=== PATIENT | female | born 1975 | race Caucasian/White ===

== ENCOUNTER 2019-08-11 19:39 | Inpatient (IN) | payer OTHER ==
[~2019-08-11] VITALS: Ht 158.8 cm; Wt 78.0 kg
[2019-08-11] MEDS ORDERED: ROPI0.5T2 PO (20:03)
[2019-08-11] MEDS ORDERED: VALE530C PO (20:03)
[2019-08-11] MEDS ORDERED: GABA600T13 PO (20:03)
[2019-08-11 20:10] LABS: BASOPHILS % (AUTO) 0.4 % (0-1); EOSINOPHILS # (AUTO) 0.1 X10'3 (0-0.9); EOSINOPHILS % (AUTO) 1.2 % (0-6); HEMOGLOBIN 12.3 g/dl (12.0-16.0); LYMPHOCYTES # (AUTO) 1.5 X10'3 (1.1-4.8); LYMPHOCYTES % (AUTO) 31.3 % (21-51); MEAN CORPUSCULAR VOLUME 91.3 FL (78-98); MONOCYTES # (AUTO) 0.3 X10'3 (0-0.9); NEUTROPHILS # (AUTO) 2.8 X10'3 (1.8-7.7); NEUTROPHILS % (AUTO) 60.1 % (42-75); PLATELET COUNT 203 X10'3 (140-440); RED BLOOD COUNT 3.83 X10'6 (4.20-5.60); RED CELL DISTRIBUTION WIDTH 12.9 % (11.5-14.5); WHITE BLOOD COUNT 4.7 X10'3 (4.5-11.0)
[2019-08-11 20:24] LABS: ALANINE AMINOTRANSFERASE 39 U/L (12-78); ALBUMIN 3.4 G/DL (3.4-5.0); ALBUMIN/GLOBULIN RATIO 1.2 (1.1-1.5); ALKALINE PHOSPHATASE 56 IU/L (46-116); ANION GAP 8 (8-16); ASPARTATE AMINO TRANSFERASE 33 U/L (10-37); BILIRUBIN,TOTAL 0.2 MG/DL (0.1-1.0); BLOOD UREA NITROGEN 7 MG/DL (7-18); BUN/CREATININE RATIO 7.4 (6.6-38.0); CALCIUM 8.2 MG/DL (8.5-10.1); CHLORIDE 107 MMOL/L (99-107); CREATININE 0.94 MG/DL (0.40-0.90); GLUCOSE 87 MG/DL (70-104); POTASSIUM 4.2 MMOL/L (3.5-5.1); SODIUM 142 MMOL/L (135-145); TOTAL CARBON DIOXIDE 27.3 MMOL/L (24-32); TOTAL PROTEIN 6.3 G/DL (6.4-8.2); eGFR 65 ML/MIN
[2019-08-11] MEDS ORDERED: mag hydrox/Alum hydrox/simeth 30ml oral suspension PO PRN (22:00)
[2019-08-11] MEDS ORDERED: ondansetron/PF 4mg/2ml inj IV PRN (22:00)
[2019-08-11] MEDS ORDERED: acetaminophen 325mg tablet PO PRN (22:00)
[2019-08-11] MEDS ORDERED: morphine 2 MG/ML inj. syringe IV PRN ×2 (22:00)
[2019-08-11] MEDS ORDERED: magnesium hydroxide 30ml (MOM) UD suspension PO PRN (22:00)
--- NOTE | 2019-08-11 22:00 | NUR ---
Patient in room MED 315. I have received report from KATELYN GUTIERREZ IN ER and had the opportunity to ask questions and assume patient care.
[2019-08-11] MEDS: normal saline 1000ml 1,000 ML IV SCH (22:25)
[2019-08-11 23:35] VITALS: BP 145/86
[2019-08-12] VITALS (18 sets, daily range): BP systolic 100–176; BP diastolic 59–89
[2019-08-12 02:39] LABS: BASOPHILS % (AUTO) 0.5 % (0-1); EOSINOPHILS # (AUTO) 0.1 X10'3 (0-0.9); EOSINOPHILS % (AUTO) 1.7 % (0-6); HEMATOCRIT 37.1 % (35.0-45.0); HEMOGLOBIN 12.7 g/dl (12.0-16.0); LYMPHOCYTES # (AUTO) 1.3 X10'3 (1.1-4.8); LYMPHOCYTES % (AUTO) 29.2 % (21-51); MEAN CORPUSCULAR HEMOGLOBIN 31.5 PG (27.0-31.0); MEAN CORPUSCULAR HGB CONC 34.1 g/dL (33.0-36.5); MEAN CORPUSCULAR VOLUME 92.3 FL (78-98); MONOCYTES # (AUTO) 0.3 X10'3 (0-0.9); MONOCYTES % (AUTO) 6.6 % (2-12); NEUTROPHILS # (AUTO) 2.7 X10'3 (1.8-7.7); PLATELET COUNT 195 X10'3 (140-440); RED BLOOD COUNT 4.03 X10'6 (4.20-5.60); WHITE BLOOD COUNT 4.4 X10'3 (4.5-11.0)
[2019-08-12 02:58] LABS: ALBUMIN 3.3 G/DL (3.4-5.0); ANION GAP 4 (8-16); BLOOD UREA NITROGEN 6 MG/DL (7-18); BUN/CREATININE RATIO 6.5 (6.6-38.0); CALCIUM 8.5 MG/DL (8.5-10.1); CHLORIDE 108 MMOL/L (99-107); CREATININE 0.92 MG/DL (0.40-0.90); GLUCOSE 84 MG/DL (70-104); SODIUM 141 MMOL/L (135-145); TOTAL CARBON DIOXIDE 28.8 MMOL/L (24-32); eGFR 66 ML/MIN
--- NOTE | 2019-08-12 06:00 | NUR ---
I have received report from An GUTIERREZ and had the opportunity to ask questions and assume patient care.
--- NOTE | 2019-08-12 06:28 | NUR ---
Problems reprioritized. Patient report given, questions answered & plan of care reviewed with ALBERT GUTIERREZ.
[2019-08-12] MEDS: normal saline 1000ml 1,000 ML IV SCH ×2 (07:57→17:57)
[2019-08-12] MEDS ORDERED: enoxaparin 100mg/ml syringe SUBCUT SCH (08:00)
[2019-08-12] MEDS ORDERED: aminophylline 250mg/10ml inj. IV PRN (08:25)
[2019-08-12] MEDS ORDERED: metoprolol tartrate 1mg/ml inj IV PRN (08:25)
[2019-08-12] MEDS ORDERED: nitroGLYCERIN 0.4mg SUBLingual tab SL PRN (08:25)
[2019-08-12] MEDS ORDERED: regadenoson 0.4mg/5ml syringe IV PRN (08:25)
[2019-08-12] MEDS: atorvastatin 20mg tablet PO SCH (08:49)
[2019-08-12] MEDS: enoxaparin 30mg/0.3ml syringe SUBCUT SCH ×2 (08:49→20:00)
[2019-08-12] MEDS: aspirin 81mg tablet.DR PO SCH (08:49)
[2019-08-12] MEDS: gabapentin 300mg capsule PO SCH ×3 (08:49→22:04)
[2019-08-12] MEDS: enoxaparin 40mg/0.4ml syringe SQ SCH ×2 (08:49→20:00)
--- NOTE | 2019-08-12 12:56 | NUR ---
PAGER ID: [phone] MESSAGE: [id number]. Pt. is done with TeamLINKS and Felipa and is back in room. ACCE [id number]
[2019-08-12] MEDS ORDERED: LIDOcaine/PRILOcaine 5gm cream TP ONE (17:35)
[2019-08-12 18:21] LABS: CHOL/HDL RATIO 2.7 (0.00-4.99); CHOLESTEROL 205 MG/DL (0-200); HDL CHOLESTEROL 77 MG/DL (35-60); LDL CHOLESTEROL 107 MG/DL (50-100); TRIGLYCERIDES 102 MG/DL (20-135)
--- NOTE | 2019-08-12 18:39 | NUR ---
Problems reprioritized. Patient report given, questions answered & plan of care reviewed with Hannah GUTIERREZ.
--- NOTE | 2019-08-12 18:45 | NUR ---
Patient in room MED 315. I have received report from Yasmany GUTIERREZ and had the opportunity to ask questions and assume patient care. bedside report completed. no distress noted.
[2019-08-12] MEDS ORDERED: midazolam 2 mg/2 ml injection ONE (19:14)
[2019-08-12] MEDS ORDERED: fentaNYL/PF 50MCG/1 ML 2ML syringe ONE (19:14)
[2019-08-12] MEDS ORDERED: LIDOcaine 1% (10mg/ml)w/preservative injection 20ml MDV ONE (19:14)
[2019-08-12] MEDS ORDERED: verapamil 2.5 mg/ml inj IV ONE (19:14)
[2019-08-12] MEDS ORDERED: heparin 1,000unit/ml 10ml vial 10 ML ONE (19:15)
[2019-08-12] MEDS ORDERED: nitroGLYCERIN-Tridil 50MG/D5W 250 ML IV ONE (19:15)
[2019-08-12] MEDS ORDERED: iohexol 350 MG/ML 50ML vial IV ONE (19:15)
[2019-08-12] MEDS ORDERED: iohexol 350MG/ML 100ml bottle IV ONE (19:15)
[2019-08-12] MEDS: metoprolol tartrate 12.5mg (1/2 tablet) PO SCH (20:00)
[2019-08-12] MEDS ORDERED: amiodarone 50MG/ML inj IV ONE (20:09)
[2019-08-12] MEDS ORDERED: VALERIAN ROOT PO SCH (21:00)
[2019-08-12] MEDS ORDERED: ROPINIRole 0.25mg tablet PO SCH (21:00)
--- NOTE | 2019-08-12 22:30 | NUR ---
Right radial band removed. pt complains of pain.denies sensation loss, numbnesss or tingling. no discoloration, finger moves all dextermities. no bleeding, no noted. will continue to monitor. education provided for skin assessment
[2019-08-13] VITALS: BP 151/84
[2019-08-13 01:00] VITALS: BP 134/74
[2019-08-13 02:14] VITALS: BP 138/77
--- NOTE | 2019-08-13 02:44 | NUR ---
Dr. Fountain notified via paged. 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 previous sinus james HR ranged. 50-59. 0200 pt asleep HR 38 non sustained. denies chest pain. currently HR sustained 46-48.
[2019-08-13] MEDS: normal saline 1000ml 1,000 ML IV SCH (03:57)
[2019-08-13 04:50] LABS: LYMPHOCYTES # (AUTO) 1.1 X10'3 (1.1-4.8); MEAN CORPUSCULAR HGB CONC 34.6 g/dL (33.0-36.5); NEUTROPHILS # (AUTO) 3.1 X10'3 (1.8-7.7); WHITE BLOOD COUNT 4.5 X10'3 (4.5-11.0)
[2019-08-13 04:56] LABS: BASOPHILS % (AUTO) 0.5 % (0-1); EOSINOPHILS % (AUTO) 1.1 % (0-6); HEMATOCRIT 36.8 % (35.0-45.0); HEMOGLOBIN 12.7 g/dl (12.0-16.0); LYMPHOCYTES % (AUTO) 24.2 % (21-51); MEAN CORPUSCULAR HEMOGLOBIN 31.7 PG (27.0-31.0); MEAN CORPUSCULAR VOLUME 91.6 FL (78-98); MEAN PLATELET VOLUME 8.3 FL (7.4-10.4); MONOCYTES # (AUTO) 0.2 X10'3 (0-0.9); MONOCYTES % (AUTO) 5.4 % (2-12); NEUTROPHILS % (AUTO) 68.8 % (42-75); PLATELET COUNT 212 X10'3 (140-440); RED BLOOD COUNT 4.02 X10'6 (4.20-5.60); RED CELL DISTRIBUTION WIDTH 12.7 % (11.5-14.5)
[2019-08-13 04:57] LABS: ALANINE AMINOTRANSFERASE 28 U/L (12-78); ALBUMIN 3.2 G/DL (3.4-5.0); ALBUMIN/GLOBULIN RATIO 1.1 (1.1-1.5); ALKALINE PHOSPHATASE 51 IU/L (46-116); ANION GAP 8 (8-16); ASPARTATE AMINO TRANSFERASE 21 U/L (10-37); BILIRUBIN,TOTAL 0.5 MG/DL (0.1-1.0); BLOOD UREA NITROGEN 5 MG/DL (7-18); BUN/CREATININE RATIO 6.4 (6.6-38.0); CALCIUM 8.5 MG/DL (8.5-10.1); CHLORIDE 108 MMOL/L (99-107); CREATININE 0.78 MG/DL (0.40-0.90); GLUCOSE 86 MG/DL (70-104); MAGNESIUM 1.7 MG/DL (1.5-2.4); POTASSIUM 3.7 MMOL/L (3.5-5.1); SODIUM 141 MMOL/L (135-145); TOTAL CARBON DIOXIDE 25.3 MMOL/L (24-32); eGFR 80 ML/MIN
[2019-08-13 06:00] VITALS: BP 113/55
--- NOTE | 2019-08-13 06:36 | NUR ---
Problems reprioritized. Patient report given, questions answered & plan of care reviewed with Krystal GUTIERREZ. bedside report completed.
[2019-08-13 07:19] VITALS: BP_SYST 113
[2019-08-13] MEDS: gabapentin 300mg capsule PO SCH (07:19)
[2019-08-13] MEDS: metoprolol tartrate 12.5mg (1/2 tablet) PO SCH (07:19)
[2019-08-13] MEDS: aspirin 81mg tablet.DR PO SCH (07:19)
[2019-08-13] MEDS: atorvastatin 20mg tablet PO SCH (07:19)
[2019-08-13] MEDS ORDERED: LISI10TA4 PO (09:39)
[2019-08-13] MEDS ORDERED: ASPI-1071 PO (09:39)
[2019-08-13] MEDS ORDERED: ATOR20TA66 PO (09:39)
--- NOTE | 2019-08-13 10:00 | NUR ---
PROVIDED PATIENT WITH DISCHARGE INSTRUCTIONS WELL NEW PRESCRIPTION INFORMATION AND DIRECTIONS. PATIENT AWARE TO DAY CARE WORKER MEDICATIONS FROM [facility]. PATIENT AWARE OF FOLLOW UP APPOINTMENT THAT WAS MADE WITH DR. STARR AND RECOMMENDATION TO FOLLOW UP WITH PCP FOR SLEEP STUDY REFERRAL. RIGHT WRIST S/P CATH SITE IS CLEAN, OPEN TO AIR, WITH NO SIGNS OF HEMATOMA AND MINIMAL BRUISING IS PRESENT. IV REMOVED, CATHETER INTACT, WITH MINIMAL BLEEDING AND CLEAN GAUZE APPLIED AND SECURED WITH TAPE. PATIENT GOT HERSELF DRESSED AND WENT HOME VIA PRIVATE VEHICLE WITH HER . PATIENT HAS NO CONCERNS OR QUESTIONS.
[2019-08-14] MEDS ORDERED: lisinopril 10 MG tablet PO SCH (08:00)
== END 2019-08-13 10:05 | disposition home or self-care (01) | DRG 282 ==
LOC: ER 19:40 → ED HOLD 21:57 → MED 3N 08-12 00:16
PROVIDERS: ADMIT Family Medicine; ATTEND Family Medicine
PROC: 4A023N7 Measurement of Cardiac Sampling and Pressure, Left Heart, Percutaneous Approach (ICD-10-PCS; principal; 2019-08-12)
PROC: B2111ZZ Fluoroscopy of Multiple Coronary Arteries using Low Osmolar Contrast (ICD-10-PCS; 2019-08-12)
PROC: B2151ZZ Fluoroscopy of Left Heart using Low Osmolar Contrast (ICD-10-PCS; 2019-08-12)
PROC: 4A02XM4 Measurement of Cardiac Total Activity, External Approach (ICD-10-PCS; 2019-08-12)
PROC: 3E033HZ Introduction of Radioactive Substance into Peripheral Vein, Percutaneous Approach (ICD-10-PCS; 2019-08-12)
DX: I21.4 Non-ST elevation (NSTEMI) myocardial infarction (principal); E78.5 Hyperlipidemia, unspecified; F17.210 Nicotine dependence, cigarettes, uncomplicated; G25.81 Restless legs syndrome; G40.909 Epilepsy, unspecified, not intractable, without status epilepticus; G62.9 Polyneuropathy, unspecified; G47.30 Sleep apnea, unspecified; I12.9 Hypertensive chronic kidney disease with stage 1 through stage 4 chronic kidney disease, or unspecified chronic kidney disease; N18.9 Chronic kidney disease, unspecified; I25.119 Atherosclerotic heart disease of native coronary artery with unspecified angina pectoris; R00.1 Bradycardia, unspecified; Z79.899 Other long term (current) drug therapy; Z82.49 Family history of ischemic heart disease and other diseases of the circulatory system; Z88.0 Allergy status to penicillin; Z98.51 Tubal ligation status
CPT/HCPCS: 36415; 71045; 78452; 80048; 80053; 80061; 83735; 84484; 85025; 87081; 93005; 93017; 93306; 99285; A9500; G0378; J0280; J0282; J1644; J1650; J2001; J2250; J2785; J3010; J3490; J7030; Q9967

== ENCOUNTER 2019-11-03 13:12 | Inpatient (IN) | payer BC ==
[~2019-11-03] VITALS: Ht 157.5 cm; Wt 84.6 kg
[~2019-11-03 13:12] MED LIST: ASPI-1071 PO; ATOR20TA66 PO; GABA600T13 PO; LISI10TA4 PO; ROPI0.5T4 PO; VALE530C PO; amiodarone 50MG/ML inj IV ONE; etomidate 2mg/ml inj. ONE; rocuronium 10mg/ml inj IV ONE; sod chloride 0.9% 10ml flush syringe IV ONE
[2019-11-03] MEDS ORDERED: methylPREDNISolone sod succ 125mg/2ml vial IV ONE (13:35)
[2019-11-03] MEDS ORDERED: albuterol 2.5 MG/3 ML nebule NEB ONE (13:35)
[2019-11-03] MEDS ORDERED: ipratropium/albuterol 3ml nebule NEB ONE (13:35)
[2019-11-03 13:53] LABS: BASOPHILS % (AUTO) 0.1 % (0-1); EOSINOPHILS # (AUTO) 0.1 X10'3 (0-0.9); EOSINOPHILS % (AUTO) 0.4 % (0-6); HEMATOCRIT 36.5 % (35.0-45.0); HEMOGLOBIN 12.5 g/dl (12.0-16.0); LYMPHOCYTES # (AUTO) 1.1 X10'3 (1.1-4.8); LYMPHOCYTES % (AUTO) 7.7 % (21-51); MEAN CORPUSCULAR HEMOGLOBIN 30.9 PG (27.0-31.0); MEAN CORPUSCULAR HGB CONC 34.1 g/dL (33.0-36.5); MEAN CORPUSCULAR VOLUME 90.6 FL (78-98); MEAN PLATELET VOLUME 8.3 FL (7.4-10.4); MONOCYTES # (AUTO) 0.7 X10'3 (0-0.9); MONOCYTES % (AUTO) 4.6 % (2-12); NEUTROPHILS # (AUTO) 12.6 X10'3 (1.8-7.7); NEUTROPHILS % (AUTO) 87.2 % (42-75); PLATELET COUNT 258 X10'3 (140-440); RED BLOOD COUNT 4.03 X10'6 (4.20-5.60); WHITE BLOOD COUNT 14.5 X10'3 (4.5-11.0)
[2019-11-03 14:07] LABS: ALANINE AMINOTRANSFERASE 138 U/L (12-78); ALBUMIN 3.5 G/DL (3.4-5.0); ALBUMIN/GLOBULIN RATIO 1.1 (1.1-1.5); ALKALINE PHOSPHATASE 130 IU/L (46-116); ANION GAP 7 (8-16); ASPARTATE AMINO TRANSFERASE 114 U/L (10-37); BILIRUBIN,TOTAL 0.2 MG/DL (0.1-1.0); BLOOD UREA NITROGEN 11 MG/DL (7-18); BUN/CREATININE RATIO 10.2 (6.6-38.0); CALCIUM 8.3 MG/DL (8.5-10.1); CHLORIDE 103 MMOL/L (99-107); CREATININE 1.08 MG/DL (0.40-0.90); GLUCOSE 106 MG/DL (70-104); POTASSIUM 3.9 MMOL/L (3.5-5.1); SODIUM 138 MMOL/L (135-145); TOTAL CARBON DIOXIDE 27.6 MMOL/L (24-32); TOTAL PROTEIN 6.6 G/DL (6.4-8.2); eGFR 55 ML/MIN
[2019-11-03 14:12] LABS: D-DIMER 6.93 MG/L FEU (0-0.50)
[2019-11-03 14:14] LABS: ETHANOL < 0.010 GM/DL (0.0-0.010)
[2019-11-03] MEDS: albuterol 2.5 MG/3 ML nebule CONTNEB PRN ×2 (14:38→19:06)
[2019-11-03] MEDS ORDERED: GABA600T13 PO (15:33)
[2019-11-03] MEDS ORDERED: iohexol 350MG/ML 100ml bottle IV ONE (15:59)
[2019-11-03] MEDS ORDERED: levoFLOXACIN-Levaquin 750MG/D5 150 ML IV ONE (16:00)
[2019-11-03] MEDS ORDERED: normal saline 1000ML IV soln IV ONE (16:00)
--- NOTE | 2019-11-03 16:10 | NUR ---
PT. OFF TO CT VIA AIR CARGO SPECIALIST, RN AND RT
--- NOTE | 2019-11-03 16:42 | NUR ---
Pt HR changed to wide complex tachycardia at 163 HR. Pt pale and SOB. Pt moved to room 5.
[2019-11-03] MEDS ORDERED: magnesium 2GM in 50ml NS 50 ML IV ONE (16:45)
[2019-11-03] MEDS ORDERED: amiodarone 50MG/ML inj IV ONE (16:50)
[2019-11-03] MEDS: amiodarone/D5 360MG/200ML BAG 200 ML IV SCH (16:50)
--- NOTE | 2019-11-03 16:50 | NUR ---
Patient converted from V-tach to afib HR 41 with occasional PVC's, Dr Early at bedside.
--- NOTE | 2019-11-03 17:05 | NUR ---
aircraft maintenance technician at bedside at this time.
[2019-11-03 17:11] LABS: ABG HCO3 22.1 mmol/L (22.0-26.0); ABG OXYGEN SATURATION 94.8 % (95-98); ABG PCO2 (T) 39.6 mmHg (35.0-45.0); ABG PH (T) 7.365 (7.350-7.450); ALLEN'S TEST POSITIVE; FCOHb 0.1 % (0.5-1.5); FLOW 15 L/min; FMetHb 0.1 % (0.3-1.12); FO2Hb 94.6 % (94-100); TOTAL HEMOGLOBIN 12.2 G/dl (12.0-16.0)
[2019-11-03] MEDS ORDERED: magnesium Cl slow-release 64mg tablet PO PRN (18:45)
[2019-11-03] MEDS ORDERED: potassium Cl 20 mEq SR tablet PO PRN ×2 (18:45)
[2019-11-03] MEDS ORDERED: magnesium 2GM in 50ml NS 50 ML IV PRN (18:45)
[2019-11-03] MEDS ORDERED: acetaminophen 650mg rectal suppository RC PRN (18:45)
[2019-11-03] MEDS ORDERED: magnesium 4gm in 100ml NS 100 ML IV PRN (18:45)
[2019-11-03] MEDS ORDERED: ipratropium/albuterol 3ml nebule NEB PRN (18:45)
[2019-11-03] MEDS ORDERED: potassium CL 10mEq/100ml bag 100 ML IV PRN ×2 (18:45)
[2019-11-03] MEDS ORDERED: normal saline 1000ml 2,000 ML IV ONE (18:45)
[2019-11-03] MEDS ORDERED: acetaminophen 325mg tablet PO PRN ×2 (18:45)
[2019-11-03] MEDS ORDERED: morphine 2 MG/ML inj. syringe IV PRN (18:45)
[2019-11-03] MEDS: K, MAG and/or Phos replacement - Verify level? MC SCH (18:45)
[2019-11-03 18:56] LABS: MAGNESIUM 1.3 MG/DL (1.5-2.4)
[2019-11-03 18:57] LABS: URINE AMPHETAMINE SCREEN NEGATIVE (Neg); URINE BARBITUATE SCREEN NEGATIVE (Neg); URINE BENZODIAZEPINES SCREEN NEGATIVE (Neg); URINE CANNABINOID SCREEN NEGATIVE (Neg); URINE COCAINE SCREEN NEGATIVE (Neg); URINE METHADONE SCREEN NEGATIVE (Neg); URINE OPIATE SCREEN NEGATIVE (Neg); URINE PHENCYCLIDINE SCREEN NEGATIVE (Neg)
--- NOTE | 2019-11-03 18:58 | NUR ---
Patient began saying "oh my god" and converted to V tach Hr 170's and became unresponsive, airway protected on 15l non rebreather, Dr Early and JAN Olmedo at bedside to assess patient.
[2019-11-03] MEDS ORDERED: clindamycin 600mg/D5W 50ml 50 ML IV ONE (19:00)
[2019-11-03] MEDS ORDERED: LORazepam 2 mg/ml vial ONE (19:04)
[2019-11-03] MEDS ORDERED: LORazepam 2 mg/ml vial IV ONE (19:05)
--- NOTE | 2019-11-03 19:07 | NUR ---
dr rodrigues at bedside to explain intubation. Patient gave consent, at bedside.
[2019-11-03] MEDS ORDERED: midazolam 100mg in NS 100ml 100 ML IV PRN (19:20)
--- NOTE | 2019-11-03 19:27 | NUR ---
headend technician at bedside to take repeat XRAY, placement for ETT verified by JAN Olmedo.
--- NOTE | 2019-11-03 19:30 | NUR ---
Dr Palacios in to assess patient at this time.
[2019-11-03 19:31] LABS: ABG HCO3 23.1 mmol/L (22.0-26.0); ABG OXYGEN SATURATION 82.9 % (95-98); ABG PCO2 (T) 56.6 mmHg (35.0-45.0); ABG PH (T) 7.242 (7.350-7.450); ABG PO2 (T) 64.3 mmHg (83-108); FCOHb 0.1 % (0.5-1.5); FMetHb 0.2 % (0.3-1.12); FO2Hb 82.7 % (94-100); PATIENT TEMPERATURE 39.5; PEEP 5 cm H2O; RESPIRATORY RATE 18 b/min; TIDAL VOLUME 425 mL; TOTAL HEMOGLOBIN 12.2 G/dl (12.0-16.0)
--- NOTE | 2019-11-03 19:40 | NUR ---
Dr Palacios at bedside to place central line.
[2019-11-03] MEDS ORDERED: acetaminophen 1,000mg/100ml IV 100 ML IV PRN (20:00)
--- NOTE | 2019-11-03 20:18 | NUR ---
Dr Tineo at bedside to set pacemaker settings. Set at rate 50 and 5.
--- NOTE | 2019-11-03 20:23 | NUR ---
Rate 50 ArtERIAL 5 mA Ventricular: 10 Ma
[2019-11-03] MEDS: CefTRIAXone inj 2,000 MG in dextrose 5%-water 50ml 50 ML IV SCH (20:28)
[2019-11-03] MEDS: pantoprazole 40 MG vial IV SCH (20:33)
[2019-11-03] MEDS: heparin, porcine 5000 units/ml vial SQ SCH (20:33)
[2019-11-03] MEDS: methylPREDNISolone sod succ 125mg/2ml vial IV SCH (20:34)
--- NOTE | 2019-11-03 21:35 | NUR ---
I have received report from Kita GUTIERREZ and had the opportunity to ask questions and assume patient care. Patient to be admitted to room 2041.
--- NOTE | 2019-11-03 21:45 | NUR ---
Patient arrived from ER via corine Savage in bedside drawer, patient applied to monitor. Transvenous pacer in place right IJ. All monitoring alarms audible.
[2019-11-03 22:00] VITALS: BP 99/57
[2019-11-03 23:00] VITALS: BP 112/72
[2019-11-03 23:43] LABS: CLARITY,URINE CLEAR (Clear); COLOR,URINE YELLOW (Yellow); GLUCOSE, URINE NEGATIVE (Neg); KETONES,URINE NEGATIVE (Neg); LEUKOCYTE ESTERASE ,URINE NEGATIVE (Neg); NITRITES, URINE NEGATIVE (Neg); OCCULT BLOOD,URINE SMALL (Neg); PROTEIN,URINE NEGATIVE (Neg); UROBILINOGEN,URINE 0.2 E.U/dL (0.2-1.0)
[2019-11-03 23:48] LABS: UA COLLECTION TYPE FOLEY CATH
[2019-11-03 23:49] LABS: BACTERIA,URINE NONE SEEN /HPF (Neg); RBC,URINE 0-2 /HPF (0-2); SQUAMOUS EPITHELIAL CELL,UR FEW /LPF (FEW); WBC,URINE NONE SEEN /HPF (0-4)
[2019-11-04] VITALS (16 sets, daily range): BP systolic 111–166; BP diastolic 68–90
[2019-11-04] MEDS: CLINDAMYCIN/D5W 900mg/50ml 50 ML IV SCH ×2 (00:35→10:27)
[2019-11-04] MEDS: methylPREDNISolone sod succ 125mg/2ml vial IV SCH ×3 (02:52→14:10)
[2019-11-04 03:31] LABS: BASOPHILS % (AUTO) 0 % (0-1); EOSINOPHILS % (AUTO) 0 % (0-6); HEMATOCRIT 29.1 % (35.0-45.0); HEMOGLOBIN 10.1 g/dl (12.0-16.0); LYMPHOCYTES # (AUTO) 0.3 X10'3 (1.1-4.8); MEAN CORPUSCULAR HEMOGLOBIN 31.1 PG (27.0-31.0); MEAN CORPUSCULAR HGB CONC 34.6 g/dL (33.0-36.5); MEAN CORPUSCULAR VOLUME 89.7 FL (78-98); MEAN PLATELET VOLUME 8.8 FL (7.4-10.4); MONOCYTES # (AUTO) 0.2 X10'3 (0-0.9); MONOCYTES % (AUTO) 2.5 % (2-12); NEUTROPHILS # (AUTO) 8.1 X10'3 (1.8-7.7); NEUTROPHILS % (AUTO) 94.5 % (42-75); PLATELET COUNT 149 X10'3 (140-440); RED BLOOD COUNT 3.25 X10'6 (4.20-5.60); RED CELL DISTRIBUTION WIDTH 13.7 % (11.5-14.5); WHITE BLOOD COUNT 8.6 X10'3 (4.5-11.0)
[2019-11-04 03:43] LABS: ALANINE AMINOTRANSFERASE 96 U/L (12-78); ALBUMIN 2.7 G/DL (3.4-5.0); ALKALINE PHOSPHATASE 86 IU/L (46-116); ANION GAP 5 (8-16); ASPARTATE AMINO TRANSFERASE 64 U/L (10-37); BILIRUBIN,TOTAL 0.5 MG/DL (0.1-1.0); BLOOD UREA NITROGEN 9 MG/DL (7-18); BUN/CREATININE RATIO 11.1 (6.6-38.0); CALCIUM 7.4 MG/DL (8.5-10.1); CHLORIDE 107 MMOL/L (99-107); CREATININE 0.81 MG/DL (0.40-0.90); GLUCOSE 149 MG/DL (70-104); POTASSIUM 4.3 MMOL/L (3.5-5.1); SODIUM 139 MMOL/L (135-145); TOTAL PROTEIN 5.4 G/DL (6.4-8.2); eGFR 77 ML/MIN
[2019-11-04 03:48] LABS: MAGNESIUM 1.7 MG/DL (1.5-2.4); PHOSPHORUS 2.4 MG/DL (2.3-4.5)
[2019-11-04 04:51] LABS: ABG BASE EXCESS -0.3 mmol/L (-2.0-3.0); ABG HCO3 24.5 mmol/L (22.0-26.0); ABG OXYGEN SATURATION 99.2 % (95-98); ABG PCO2 (T) 39.3 mmHg (35.0-45.0); ABG PO2 (T) 300.2 mmHg (83-108); FCOHb 0.2 % (0.5-1.5); FMetHb 0.3 % (0.3-1.12); FO2Hb 98.7 % (94-100); PATIENT TEMPERATURE 36.2; PEEP 10 cm H2O; RESPIRATORY RATE 18 b/min; TIDAL VOLUME 425 mL; TOTAL HEMOGLOBIN 10.9 G/dl (12.0-16.0)
--- NOTE | 2019-11-04 06:41 | NUR ---
Problems reprioritized. Patient report given, questions answered & plan of care reviewed with Ashley GUTIERREZ.
--- NOTE | 2019-11-04 06:41 | NUR ---
Student documentation: I have reviewed and agree with all interventions, assessments performed and documented by Alycia arambula. Student Medication Administration: For this medication-pass time frame, all medication were reviewed, dispensed, administered and documented per hospital policy by Alycia ott
--- NOTE | 2019-11-04 06:42 | NUR ---
Patient in room ICU 2041. I have received report from Kelley GUTIERREZ and had the opportunity to ask questions and assume patient care. Addendum: 11/04/19 at 0643 by Ashley Herzog RN Amended: Links added.
[2019-11-04] MEDS: pantoprazole 40 MG vial IV SCH (07:25)
[2019-11-04] MEDS: CefTRIAXone inj 2,000 MG in dextrose 5%-water 50ml 50 ML IV SCH (07:26)
[2019-11-04] MEDS: K, MAG and/or Phos replacement - Verify level? MC SCH (07:29)
[2019-11-04] MEDS: heparin, porcine 5000 units/ml vial SQ SCH (07:29)
[2019-11-04] MEDS ORDERED: azithromycin/NS 500mg/250ml 250 ML IV SCH (08:00)
--- NOTE | 2019-11-04 09:37 | NUR ---
Pt. self extubated at 0910. Charge nurse and Dr. Castaneda aware. No stridor or resp. distress. Placed on nasal canula. Dr. Watkins in to see pt.
[2019-11-04] MEDS ORDERED: furosemide 40mg/4ml inj IV ONE (09:40)
--- NOTE | 2019-11-04 09:57 | NUR ---
Pt. was yelling at her , cursing and crying. left.
[2019-11-04] MEDS ORDERED: LORazepam 2 mg/ml vial IV PRN (10:20)
[2019-11-04] MEDS ORDERED: GABA600T13 PO (12:29)
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
[2019-11-04] MEDS ORDERED: fentaNYL/PF 50MCG/1 ML 2ML syringe ONE (13:57)
[2019-11-04] MEDS ORDERED: midazolam 2 mg/2 ml injection ONE (13:57)
[2019-11-04] MEDS ORDERED: LIDOcaine 1% (10mg/ml)w/preservative injection 20ml MDV ONE (13:57)
[2019-11-04] MEDS ORDERED: heparin 1,000unit/ml 10ml vial 10 ML ONE (13:57)
[2019-11-04] MEDS ORDERED: iohexol 350 MG/ML 50ML vial IV ONE (13:57)
[2019-11-04] MEDS ORDERED: iohexol 350MG/ML 100ml bottle IV ONE (13:58)
--- NOTE | 2019-11-04 15:04 | NUR ---
Dr. Watkins and Dr. Tineo were just here talking with pt. Pt. refusing to have heart cath or AICD. Dr. Tineo pulled the transvenous pacing wire out. Dr. Castaneda aware that pt. is refusing treatment and wants to sign out AMA. Charge nurse aware. at bedside now. volunteer services specialist called again to assess the situation. Pt. is alert and states she is aware of the need for intervention but is refusing to stay here at the hospital.
--- NOTE | 2019-11-04 16:02 | NUR ---
Pt. and spoke at length. They decided will take pt. to [facility] ER to be seen since pt. does not want to stay at this facility. track worker was present. Charge nurse will notify [employer] that pt. left AMA and is planning to go to [facility] since pt's mental stability is somewhat in question since and sister state the pt. does not normally act like this. Transducer, CVL, PIV and art line dc'd. Manual pressure held and dressings applied. Pt. taken out to 's car in w/c with stable vital signs after signing AMA form. Pt. left with all belongings. ICU director aware of situation. was given pt's doctors' names to provide to [facility].
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
[2019-11-04] MEDS ORDERED: lactobacillus rhamnosus 10,000 MMU CELLS/CAPSULE PO SCH (20:00)
== END 2019-11-04 16:20 | disposition left against medical advice (07) | DRG 177 ==
LOC: ER 13:13 → ED HOLD 18:45 → ICU 2S 21:40
PROVIDERS: ADMIT Internal Medicine Critical Care Medicine; ATTEND Internal Medicine Critical Care Medicine
PROC: BW241ZZ Computerized Tomography (CT Scan) of Chest and Abdomen using Low Osmolar Contrast (ICD-10-PCS; principal; 2019-11-03)
DX: J69.0 Pneumonitis due to inhalation of food and vomit (principal); I49.01 Ventricular fibrillation; J96.00 Acute respiratory failure, unspecified whether with hypoxia or hypercapnia; I47.2 Ventricular tachycardia; J21.9 Acute bronchiolitis, unspecified; F17.210 Nicotine dependence, cigarettes, uncomplicated; G25.81 Restless legs syndrome; I10 Essential (primary) hypertension; I45.4 Nonspecific intraventricular block; Z53.29 Procedure and treatment not carried out because of patient's decision for other reasons; G62.9 Polyneuropathy, unspecified; Z88.0 Allergy status to penicillin; Z88.8 Allergy status to other drugs, medicaments and biological substances; Z98.51 Tubal ligation status; Z90.49 Acquired absence of other specified parts of digestive tract
CPT/HCPCS: 31500; 36415; 36600; 70450; 71045; 71275; 80053; 80162; 80305; 80320; 81001; 82803; 82948; 83605; 83735; 83880; 84100; 84443; 84484; 85018; 85025; 85379; 87040; 87070; 87081; 93306; 94002; 94003; 94640; 94760; 99285; C9113; G0378; J0131; J0456; J0696; J1644; J1940; J1956; J2001; J2060; J2250; J2270; J2930; J3010; J3475; J3490; J7030; J7060; Q9967